=== PATIENT | female | born 1995 | race Two or more races ===

== ENCOUNTER 2017-12-21 12:11 | Emergency (ER) | payer OTHER ==
[2017-12-21 12:17] VITALS: BP 117/76
[2017-12-21] MEDS ORDERED: LIDOCAINE 2% 10 ML MDV SUBQ STA (12:39)
--- NOTE | 2017-12-21 13:06 | ED Physician Documentation ---
PD HPI UPPER EXT INJURY - Stated complaint Stated Complaint: HAND LAC - Chief complaint Chief Complaint: Laceration - History obtained from History obtained from: Patient - History of Present Illness Location: Left, Hand Type of injury: Laceration Where injury occurred: Home Timing - onset: How many hours ago (1) Timing - duration: Hours (1) Timing - details: Abrupt onset Pain level max: 5 Pain level now: 5 Improved by: Rest Worsened by: Moving, Palpating Associated symptoms: No: Weakness, Numbness, Tingling Contributing factors: No: Anticoagulated Similar symptoms before: Has not had sx before Recently seen: Not recently seen - Additonal information Additional information: pt is right handed. cut hand pitting an avocado Review of Systems Constitutional: denies: Fever, Chills : denies: Now EGA Neurologic: denies: Focal weakness, Numbness PD PAST MEDICAL HISTORY - Past Medical History Cardiovascular: None Respiratory: None Neuro: None Endocrine/Autoimmune: None GI: None CAN TOP SETTER: None : None HEENT: None Psych: None Musculoskeletal: None Derm: None - Past Surgical History Past Surgical History: No - Present Medications Home Medications: Ambulatory Orders Medication Instructions Recorded Confirmed No Known Home Medications 10/01/14 10/01/14 - Allergies Allergies/Adverse Reactions: Allergies Allergy/AdvReac Type Severity Reaction Status Date / Time No Known Drug Allergies Allergy Verified 12/21/17 12:17 - Social History Does the pt smoke?: No Smoking Status: Never smoker Does the pt drink ETOH?: Yes Does the pt have substance abuse?: No - Immunizations Immunizations are current?: Yes - POLST Patient has POLST: No PD ED PE NORMAL - Vitals Vital signs reviewed: Yes - General General: Alert and oriented X 3, No acute distress - Derm Derm: Warm and dry - Extremities Extremities: Other (L hand - 1.5cm linear laceration to the palm over the 4th MC. Pain with extension of the 4th and 5th digits. normal flexion. tested vs resistance. NVI. ) - Neuro Neuro: Alert and oriented X 3 - Psych Psych: Normal mood Results - Vitals Vitals: Vital Signs - 24 hr 12/21/17 12:15 Temperature 36.5 C Heart Rate 64 Respiratory 18 Rate Blood Pressure 117/76 O2 Saturation 100 Oxygen O2 Source Room air - Rads (name of study) L hand xray Radiology: Prelim report reviewed, EMP read contemporaneously, See rad report (no acute abnormality.) Procedures - Laceration (location) L hand palm Wound type: Linear, Into subcut fat, Clean Neurovascular status: Sensory intact, Motor intact, Vascular intact Tendon involvement: Tendon intact. No: Tendon Injury Anesthesia: Lidocaine 2% Wound Preparation: Irrigated copiously NS, Wound explored, To the base Skin layer closure: Nylon, Size #-0 - enter number (4), Sutures - enter # (2) Other: Patient tolerated well, No complications, Neurovascular intact, Dressing applied, Tetanus UTD Complexity: Simple PD MEDICAL DECISION MAKING - ED course Complexity details: considered differential, d/w patient ED course: Patient is a 22-year-old female who presents to the emergency department with left palm laceration. This was repaired. Tolerated well. Warnings of infection and instructions on wound care given at bedside. Also counseled on how to minimize scarring. No evidence of tendon injury clinically. Patient counseled regarding signs and symptoms for which I believe and urgent re- evaluation would be necessary. Patient with good understanding of and agreement to plan and is comfortable going home at this time This document was made in part using voice recognition software. While efforts are made to proofread this document, sound alike and grammatical errors may occur. - Sepsis Event Vital Signs: Vital Signs - 24 hr 12/21/17 12:15 Temperature 36.5 C Heart Rate 64 Respiratory 18 Rate Blood Pressure 117/76 O2 Saturation 100 Oxygen O2 Source Room air Departure - Departure Disposition: 01 Home, Self Care Clinical Impression: Laceration of palm Qualifiers: Encounter type: initial encounter Laterality: left Qualified Code(s): S61.412A - Laceration without foreign body of left hand, initial encounter Condition: Good Instructions: ED Laceration Hand Follow-Up: [facility] [Provider Group] (in 10-14 days for suture removal ) Comments: Keep the wound clean. The stitches should be removed in 10-14 days with your doctor. Return if you worsen. Return sooner for redness, swelling or drainage from the wound. You may use Motrin or Tylenol as needed for pain. Discharge Date/Time: 12/21/17 13:30
[2017-12-21] MEDS ORDERED: BACITRACIN OINT TOP ONE (13:21)
[2017-12-21] MEDS ORDERED: BACITRACIN OINT TOP STA (13:25)
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
== END 2017-12-21 13:30 | disposition home or self-care (01) ==
LOC: ED 12:11
DX: S61.412A Laceration without foreign body of left hand, initial encounter (principal); W26.0XXA Contact with knife, initial encounter; Y93.G1 Activity, food preparation and clean up; Y92.009 Unspecified place in unspecified non-institutional (private) residence as the place of occurrence of the external cause
CPT/HCPCS: 12001; 73130; 99283; A9270